=== PATIENT | female | born 1965 | race Native Hawaiian/Other Pacific Islander ===

== ENCOUNTER 2017-01-06 08:39 | Observation (INO) | payer BC ==
[~2017-01-06] VITALS: Ht 157.5 cm; Wt 77.0 kg
[~2017-01-06 08:39] MED LIST: FERRATE325 MG PO; FOLIC ACID 11 MG/TA1 PO; IBU800 M1 PO; IMDUR 30MG30 MG/TAB PO; ISORDIL TITRADO30 MG PO; LASIX 40MG TABL40 MG PO; NATURAL C500 MG PO; NEPHROCAP PO; NORCO 325 MG-51 TAB PO; PLAVIX 75MG TAB75 MG PO; PRAVACHOL 20MG20 MG PO; PREDNISONE 5MG5 MG PO; SODIUM BICARBO650 MG PO; TYLENOL EXTRA500 M1 PO; VASOTEC 10M10 MG/TAB PO; VITAMIN C500 MG PO; ZYLOPRIM 300MG300 MG PO; [UNRECOGNIZED DRUG - OTHER]
[2017-01-06] MEDS ORDERED: SODIUM BICARBO650 MG PO (09:06)
[2017-01-06] MEDS ORDERED: VASOTEC 10M10 MG/TAB PO (09:08)
[2017-01-06] MEDS ORDERED: PLAVIX 75MG TAB75 MG PO (09:08)
[2017-01-06 09:15] LABS: MEAN CELL VOLUME 101 fl (80.0-100.0); MEAN CORPUSCULAR HGB CONC 34 g/dl (33.0-37.0); MEAN PLATELET VOLUME 10.1 fl (7.4-10.4); PLATELET COUNT 172 K/mm3 (130-400); RED BLOOD COUNT 3.33 M/mm3 (4.10-5.30); REDCELL DISTRIBUTION WIDTH-CV 12.5 % (11.5-14.5); WHITE BLOOD COUNT 13.5 K/mm3 (4.8-10.8)
[2017-01-06 09:16] LABS: ADD PATHOLOGY DIFF REVIEW NO; HEMATOCRIT 33.5 % (37.0-47.0); HEMOGLOBIN 11.4 g/dl (12.5-16.0); MEAN CORPUSCULAR HEMOGLOBIN 34 pg (27.0-31.0)
[2017-01-06 09:24] LABS: ADJUSTED CALCIUM 9.2 mg/dL (8.4-10.2); ALANINE AMINOTRANSFERASE 43 U/L (9-52); ALBUMIN 3.9 gm/dL (3.5-5.0); ALKALINE PHOSPHATASE 116 U/L (50-136); ANION GAP 12 mmol/L (7-16); BILIRUBIN,TOTAL 0.8 mg/dL (0.0-1.0); BLOOD UREA NITROGEN 20 mg/dL (7-17); CALCIUM 9.1 mg/dL (8.4-10.2); CARBON DIOXIDE 33 mmol/L (22-30); CHLORIDE 94 mmol/L (98-107); GLUCOSE 91 mg/dL (74-106); LIPASE 330 U/L (23-300); SODIUM 138 mmol/L (137-145); TOTAL PROTEIN 7.5 gm/dL (6.4-8.2)
[2017-01-06 09:36] LABS: B-TYPE NATRIURETIC PEPTIDE 1650 pg/mL (0-125)
[2017-01-06 09:38] LABS: CREATININE, serum 3.95 mg/dL (0.52-1.25); POTASSIUM 2.9 mmol/L (3.4-5.0); TROPONIN-I < 0.012 ng/mL (0.000-0.034)
[2017-01-06 10:00] LABS: BAND 13 % (0-10); BASOPHIL 1 % (0-2); EOSINOPHIL 6 % (0-4); METAMYELOCYTE 1 % (0-0); NEUTROPHILS 60 % (42.0-75.2); PLATELET ESTIMATE NORMAL (NORMAL); TOTAL CELLS COUNTED 100
[2017-01-06 11:35] VITALS: BP 120/68; PULSE 69; TEMP 97.9
[2017-01-06 11:37] VITALS: BP 120/68; PULSE 18; TEMP 97.9
[2017-01-06 15:10] VITALS: BP 115/67; PULSE 70; TEMP 98.1
[2017-01-06 19:13] VITALS: BP 118/72; PULSE 73; TEMP 98.5
[2017-01-06 23:44] VITALS: BP 102/50; PULSE 72; TEMP 98.1
[2017-01-07 04:19] VITALS: BP 103/48; PULSE 65; TEMP 98
[2017-01-07 07:40] LABS: MEAN CELL VOLUME 104 fl (80.0-100.0); MEAN CORPUSCULAR HGB CONC 33 g/dl (33.0-37.0); MEAN PLATELET VOLUME 10.7 fl (7.4-10.4); PLATELET COUNT 202 K/mm3 (130-400); RED BLOOD COUNT 3.36 M/mm3 (4.10-5.30); REDCELL DISTRIBUTION WIDTH-CV 12.5 % (11.5-14.5); WHITE BLOOD COUNT 10.2 K/mm3 (4.8-10.8)
[2017-01-07 07:41] VITALS: BP 117/68; BP 17/68; PULSE 70; TEMP 98
[2017-01-07 07:41] LABS: HEMATOCRIT 34.8 % (37.0-47.0); HEMOGLOBIN 11.6 g/dl (12.5-16.0); MEAN CORPUSCULAR HEMOGLOBIN 35 pg (27.0-31.0)
[2017-01-07 07:42] LABS: ADD PATHOLOGY DIFF REVIEW NO
[2017-01-07 08:00] LABS: ANION GAP 13 mmol/L (7-16); BLOOD UREA NITROGEN 30 mg/dL (7-17); CALCIUM 9.3 mg/dL (8.4-10.2); CARBON DIOXIDE 28 mmol/L (22-30); CHLORIDE 100 mmol/L (98-107); GLUCOSE 74 mg/dL (74-106); POTASSIUM 4.2 mmol/L (3.4-5.0); SODIUM 140 mmol/L (137-145)
[2017-01-07 08:09] LABS: TROPONIN-I < 0.012 ng/mL (0.000-0.034)
[2017-01-07 09:24] LABS: BAND 5 % (0-10); EOSINOPHIL 3 % (0-4); NEUTROPHILS 62 % (42.0-75.2); TOTAL CELLS COUNTED 100
[2017-01-07 09:25] LABS: PLATELET ESTIMATE NORMAL (NORMAL)
[2017-01-07 11:11] VITALS: BP 114/68; PULSE 70; TEMP 98.6
[2017-01-07] MEDS ORDERED: ZYLOPRIM 100MG100 MG PO (11:26)
[2017-01-07] MEDS ORDERED: VITAMINC500CH PO (11:26)
[2017-01-07] MEDS ORDERED: AMBIEN 5MG TABLE5 MG PO (11:27)
[2017-01-07] MEDS ORDERED: ANTACID500 M1 PO (11:27)
[2017-01-07] MEDS ORDERED: ASPIRIN 81M81 MG/TA2 PO (11:27)
== END 2017-01-07 16:10 | disposition home or self-care (01) ==
LOC: COL.ER 08:39 → MEDICAL 10:01
PROVIDERS: Emergency Medicine; Internal Medicine
DX: R07.9 Chest pain, unspecified (principal); M10.9 Gout, unspecified; I13.2 Hypertensive heart and chronic kidney disease with heart failure and with stage 5 chronic kidney disease, or end stage renal disease; N18.6 End stage renal disease; I25.10 Atherosclerotic heart disease of native coronary artery without angina pectoris; M32.14 Glomerular disease in systemic lupus erythematosus; D63.1 Anemia in chronic kidney disease; E78.5 Hyperlipidemia, unspecified; Z95.1 Presence of aortocoronary bypass graft; Z95.5 Presence of coronary angioplasty implant and graft; Z99.2 Dependence on renal dialysis; Z90.49 Acquired absence of other specified parts of digestive tract; Z87.891 Personal history of nicotine dependence; E66.9 Obesity, unspecified
CPT/HCPCS: G0378; J7512

== ENCOUNTER → 2017-04-21 | Outpatient (CLI) | payer BC ==
[~2017-04-21] MED LIST changes: +AMBIEN 5MG TABLE5 MG PO; +ANTACID500 M1 PO; +ASPIRIN 81M81 MG/TA2 PO; +VITAMINC500CH PO; +ZYLOPRIM 100MG100 MG PO
== END ==
LOC: MC.RAD 10:49
DX: Z12.31 Encounter for screening mammogram for malignant neoplasm of breast (principal)

== ENCOUNTER 2017-10-04 06:25 | Emergency (ER) | payer BC ==
[~2017-10-04] VITALS: Ht 157.5 cm; Wt 75.5 kg
[2017-10-04 07:24] LABS: BASO % 0.3 % (0.0-2.0); EOS # 0.2 (0.0-0.7); EOS % 1.2 % (0-4.0); GRAN # 10.1 (1.4-6.5); GRAN % 79.3 % (42.2-75.2); HEMOGLOBIN 12.2 g/dl (12.5-16.0); LYMPH % 15.3 % (20.0-51.0); MEAN CELL VOLUME 102 fl (80.0-100.0); MEAN CORPUSCULAR HEMOGLOBIN 34 pg (27.0-31.0); MEAN CORPUSCULAR HGB CONC 34 g/dl (33.0-37.0); MONO # 0.4 (0.1-0.6); MONO % 3.4 % (1.7-9.3); PLATELET COUNT 165 K/mm3 (130-400); RED BLOOD COUNT 3.58 M/mm3 (4.10-5.30); REDCELL DISTRIBUTION WIDTH-CV 13.3 % (11.5-14.5)
[2017-10-04 07:28] LABS: HEMATOCRIT 36.4 % (37.0-47.0)
[2017-10-04] MEDS ORDERED: RENVELA800 MG PO (07:39)
[2017-10-04 07:40] LABS: ALANINE AMINOTRANSFERASE 65 U/L (9-52); ALBUMIN 3.6 gm/dL (3.5-5.0); ALKALINE PHOSPHATASE 226 U/L (50-136); ANION GAP 17 mmol/L (7-16); AST,SGOT 35 U/L (15-37); BILIRUBIN,TOTAL 0.7 mg/dL (0.0-1.0); BLOOD UREA NITROGEN 62 mg/dL (7-17); CALCIUM 9.3 mg/dL (8.4-10.2); CARBON DIOXIDE 17 mmol/L (22-30); CHLORIDE 103 mmol/L (98-107); GLUCOSE 102 mg/dL (74-106); LIPASE 577 U/L (23-300); POTASSIUM 3.8 mmol/L (3.4-5.0); SODIUM 137 mmol/L (137-145); TOTAL PROTEIN 7.4 gm/dL (6.4-8.2)
[2017-10-04 07:43] LABS: CREATININE, serum 8.52 mg/dL (0.52-1.25)
[2017-10-04 07:49] LABS: TROPONIN-I < 0.012 ng/mL (0.000-0.034)
[2017-10-04 08:33] LABS: COLLECTION METHOD CLEAN CATCH
[2017-10-04 08:46] LABS: PH 6 (5-8); URINE APPEARANCE Cloudy; URINE BACTERIA Rare /hpf; URINE BILIRUBIN Negative (NEGATIVE); URINE BLOOD 3+ (NEGATIVE); URINE COLOR Yellow; URINE GLUCOSE 1+ (NEGATIVE); URINE KETONE Negative (NEGATIVE); URINE LEUKOCYTE ESTERASE 3+ (NEGATIVE); URINE NITRATE Positive (NEGATIVE); URINE PROTEIN(semi-quant) 2+ (NEGATIVE); URINE RBC 20-50 /hpf; URINE UROBILINOGEN Negative (NEGATIVE)
[2017-10-04] MEDS ORDERED: VANTIN 200200 MG/TAB PO ×2 (09:21→13:59)
[2017-10-04 10:02] VITALS: BP 158/89; PULSE 78; TEMP 97.8
== END 2017-10-04 10:00 | disposition home or self-care (01) ==
LOC: COL.ER 06:25
PROVIDERS: Emergency Medicine
DX: N39.0 Urinary tract infection, site not specified (principal); R05 Cough; M10.9 Gout, unspecified; N18.6 End stage renal disease; I25.10 Atherosclerotic heart disease of native coronary artery without angina pectoris; Z99.2 Dependence on renal dialysis; Z95.5 Presence of coronary angioplasty implant and graft; Z79.82 Long term (current) use of aspirin
CPT/HCPCS: J0696; J7050

== ENCOUNTER 2018-05-19 11:24 | Inpatient (IN) | payer BC ==
[~2018-05-19] VITALS: Ht 157.5 cm; Wt 78.6 kg
[2018-05-19] VITALS (16 sets, daily range): BP systolic 102–135; BP diastolic 36–68; PULSE 70–80; TEMP 98.2–98.9
[~2018-05-19 11:24] MED LIST changes: +RENVELA800 MG PO; +VANTIN 200200 MG/TAB PO
[2018-05-19 13:16] LABS: BASO # 0.1 (0.0-0.2); BASO % 0.6 % (0.0-2.0); EOS # 0.4 (0.0-0.7); EOS % 3.1 % (0-4.0); GRAN # 8.5 (1.4-6.5); LYMPH # 3.4 (1.2-3.4); LYMPH % 26.3 % (20.0-51.0); MEAN CELL VOLUME 102 fl (80.0-100.0); MEAN CORPUSCULAR HGB CONC 33 g/dl (33.0-37.0); MEAN PLATELET VOLUME 10.3 fl (7.4-10.4); MONO # 0.3 (0.1-0.6); MONO % 2.5 % (1.7-9.3); PLATELET COUNT 183 K/mm3 (130-400); RED BLOOD COUNT 2.23 M/mm3 (4.10-5.30)
[2018-05-19 13:19] LABS: HEMATOCRIT 22.7 % (37.0-47.0); HEMOGLOBIN 7.4 g/dl (12.5-16.0); MEAN CORPUSCULAR HEMOGLOBIN 33 pg (27.0-31.0)
[2018-05-19 13:22] LABS: INR 0.9 (0.8-3.0); PROTHROMBIN TIME 10.4 SECONDS (9.7-12.8)
[2018-05-19 13:25] LABS: PARTIAL THROMBOPLASTIN TIME 33.3 SECONDS (26.0-37.0)
[2018-05-19 13:30] LABS: ALANINE AMINOTRANSFERASE 22 U/L (9-52); ALBUMIN 3.6 gm/dL (3.5-5.0); ALKALINE PHOSPHATASE 106 U/L (50-136); ANION GAP 5 mmol/L (7-16); AST,SGOT 22 U/L (15-37); BILIRUBIN,TOTAL 0.4 mg/dL (0.0-1.0); BLOOD UREA NITROGEN 31 mg/dL (7-17); CALCIUM 8.5 mg/dL (8.4-10.2); CARBON DIOXIDE 34 mmol/L (22-30); CHLORIDE 104 mmol/L (98-107); GLUCOSE 91 mg/dL (74-106); LIPASE 359 U/L (23-300); POTASSIUM 3.2 mmol/L (3.4-5.0); SODIUM 143 mmol/L (137-145); TOTAL PROTEIN 6.8 gm/dL (6.4-8.2)
[2018-05-19 13:39] LABS: CREATININE, serum 4.56 mg/dL (0.52-1.25)
[2018-05-19 13:42] LABS: TROPONIN-I < 0.012 ng/mL (0.000-0.034)
[2018-05-19 18:32] LABS: HEMATOCRIT 22.6 % (37.0-47.0); HEMOGLOBIN 7.4 g/dl (12.5-16.0)
[2018-05-20] VITALS (26 sets, daily range): BP systolic 113–146; BP diastolic 39–88; PULSE 50–77; TEMP 98.1–99.7
[2018-05-20 06:17] LABS: BASO # 0.1 (0.0-0.2); BASO % 0.5 % (0.0-2.0); EOS # 0.4 (0.0-0.7); EOS % 4.1 % (0-4.0); GRAN # 7.2 (1.4-6.5); LYMPH # 2.7 (1.2-3.4); LYMPH % 25.3 % (20.0-51.0); MEAN CELL VOLUME 100 fl (80.0-100.0); MEAN CORPUSCULAR HGB CONC 33 g/dl (33.0-37.0); MEAN PLATELET VOLUME 10.7 fl (7.4-10.4); MONO # 0.3 (0.1-0.6); MONO % 2.6 % (1.7-9.3); PLATELET COUNT 165 K/mm3 (130-400); RED BLOOD COUNT 2.92 M/mm3 (4.10-5.30); REDCELL DISTRIBUTION WIDTH-CV 15.2 % (11.5-14.5)
[2018-05-20 06:23] LABS: HEMATOCRIT 29.1 % (37.0-47.0); HEMOGLOBIN 9.5 g/dl (12.5-16.0); MEAN CORPUSCULAR HEMOGLOBIN 33 pg (27.0-31.0)
[2018-05-20 06:29] LABS: ALANINE AMINOTRANSFERASE 34 U/L (9-52); ALBUMIN 3.2 gm/dL (3.5-5.0); ALKALINE PHOSPHATASE 105 U/L (50-136); ANION GAP 8 mmol/L (7-16); AST,SGOT 22 U/L (15-37); BILIRUBIN,TOTAL 0.6 mg/dL (0.0-1.0); BLOOD UREA NITROGEN 39 mg/dL (7-17); CALCIUM 8.5 mg/dL (8.4-10.2); CARBON DIOXIDE 28 mmol/L (22-30); CHLORIDE 109 mmol/L (98-107); GLUCOSE 76 mg/dL (74-106); POTASSIUM 4.3 mmol/L (3.4-5.0); SODIUM 144 mmol/L (137-145); TOTAL PROTEIN 6.2 gm/dL (6.4-8.2)
[2018-05-20 06:42] LABS: CREATININE, serum 6.18 mg/dL (0.52-1.25); TROPONIN-I < 0.012 ng/mL (0.000-0.034)
[2018-05-21] VITALS (8 sets, daily range): BP systolic 108–145; BP diastolic 51–77; PULSE 62–77; TEMP 98–98.9
[2018-05-21 14:35] LABS: BASO % 0.3 % (0.0-2.0); EOS # 0.5 (0.0-0.7); EOS % 5.1 % (0-4.0); GRAN # 7.4 (1.4-6.5); GRAN % 72.6 % (42.2-75.2); HEMOGLOBIN 10.2 g/dl (12.5-16.0); LYMPH % 19.6 % (20.0-51.0); MEAN CELL VOLUME 97 fl (80.0-100.0); MEAN CORPUSCULAR HEMOGLOBIN 32 pg (27.0-31.0); MEAN CORPUSCULAR HGB CONC 33 g/dl (33.0-37.0); MEAN PLATELET VOLUME 10.4 fl (7.4-10.4); MONO # 0.2 (0.1-0.6); PLATELET COUNT 157 K/mm3 (130-400); RED BLOOD COUNT 3.17 M/mm3 (4.10-5.30)
[2018-05-21 14:39] LABS: HEMATOCRIT 30.7 % (37.0-47.0)
[2018-05-21 14:42] LABS: ALBUMIN 3.6 gm/dL (3.5-5.0); CALCIUM 8.9 mg/dL (8.4-10.2); CREATININE, serum 3.23 mg/dL (0.52-1.25); PHOSPHOROUS 2.6 mg/dL (2.5-4.5); POTASSIUM 3.5 mmol/L (3.4-5.0)
== END 2018-05-21 17:20 | disposition home or self-care (01) | DRG 377 ==
LOC: COL.ER 11:24 → SURG 13:56
PROVIDERS: Emergency Medicine; Internal Medicine Cardiovascular Disease; Internal Medicine Gastroenterology; Internal Medicine Nephrology
PROC: 0DB98ZX Excision of Duodenum, Via Natural or Artificial Opening Endoscopic, Diagnostic (ICD-10-PCS; principal; 2018-05-20 12:00)
PROC: 0DBL8ZX Excision of Transverse Colon, Via Natural or Artificial Opening Endoscopic, Diagnostic (ICD-10-PCS; 2018-05-21)
PROC: 5A1D70Z Performance of Urinary Filtration, Intermittent, Less than 6 Hours Per Day (ICD-10-PCS; 2018-05-21)
DX: K92.1 Melena (principal); N18.6 End stage renal disease; I12.0 Hypertensive chronic kidney disease with stage 5 chronic kidney disease or end stage renal disease; N25.81 Secondary hyperparathyroidism of renal origin; D62 Acute posthemorrhagic anemia; D12.3 Benign neoplasm of transverse colon; D13.2 Benign neoplasm of duodenum; I95.3 Hypotension of hemodialysis; E11.22 Type 2 diabetes mellitus with diabetic chronic kidney disease; Z99.2 Dependence on renal dialysis; I25.10 Atherosclerotic heart disease of native coronary artery without angina pectoris; L93.0 Discoid lupus erythematosus; Z95.1 Presence of aortocoronary bypass graft; D63.1 Anemia in chronic kidney disease; E78.5 Hyperlipidemia, unspecified; Z87.891 Personal history of nicotine dependence; I25.119 Atherosclerotic heart disease of native coronary artery with unspecified angina pectoris; Z95.5 Presence of coronary angioplasty implant and graft
CPT/HCPCS: OP; C9113; J2405; J2704; J2765; J7030; J7512; P9016

== ENCOUNTER → 2018-05-30 | Outpatient (CLI) | payer BC | LOC: MC.RAD 12:23 | DX: N63.0 Unspecified lump in unspecified breast (principal); N64.4 Mastodynia | CPT/HCPCS: G0279 ==

== ENCOUNTER → 2018-09-15 | Outpatient (CLI) | payer BC, OTHER | LOC: MC.RAD 10:50 | DX: N61.1 Abscess of the breast and nipple (principal); N60.12 Diffuse cystic mastopathy of left breast; N60.01 Solitary cyst of right breast ==

== ENCOUNTER → 2020-11-05 | Outpatient (CLI) | payer BC | LOC: MC.RAD 11:13 | DX: Z12.31 Encounter for screening mammogram for malignant neoplasm of breast (principal); N64.9 Disorder of breast, unspecified ==

== ENCOUNTER → 2020-11-11 | Outpatient (CLI) | payer BC | LOC: MC.RAD 13:00 | DX: N60.02 Solitary cyst of left breast (principal) ==

== ENCOUNTER → 2021-07-03 | Outpatient (CLI) | payer BC | LOC: COL.RAD 14:25 | DX: Z11.1 Encounter for screening for respiratory tuberculosis (principal) ==

== ENCOUNTER 2021-07-23 14:33 | Emergency (ER) | payer BC | END 2021-07-23 15:44 | disposition left against medical advice (07) | LOC: COL.ER 14:33 | DX: R69 Illness, unspecified (principal) ==

== ENCOUNTER 2021-10-30 12:06 | Day surgery (SDC) | payer BC ==
[2021-10-30] VITALS (9 sets, daily range): BP systolic 108–133; BP diastolic 66–73; PULSE 57–67; TEMP 98.4
[~2021-10-30] VITALS: Ht 157.5 cm; Wt 71.4 kg
[2021-10-30] MEDS ORDERED: AURYXIA1 GM PO (14:04)
[2021-10-30] MEDS ORDERED: TYLENOL 500MG500 MG PO (14:04)
--- NOTE | 2021-10-30 14:04 | NUR ---
Moderate sedation assessment completed after assessing patient in express unit. See merge for all medication, assessment, vital sign, and intervention times.
[2021-10-30 14:11] LABS: HEMATOCRIT 38.6 % (37.0-47.0); MEAN CELL VOLUME 97 fl (80.0-100.0); MEAN CORPUSCULAR HEMOGLOBIN 33 pg (27-31); MEAN CORPUSCULAR HGB CONC 34 g/dl (33.0-37.0); PLATELET COUNT 161 K/mm3 (130-400); RED BLOOD COUNT 3.98 M/mm3 (4.10-5.30)
[2021-10-30 14:19] LABS: PROTHROMBIN TIME 11.4 SECONDS (9.7-12.8)
[2021-10-30 14:21] LABS: PARTIAL THROMBOPLASTIN TIME 30.8 SECONDS (26.0-37.0)
[2021-10-30 14:34] LABS: CALCIUM 8.2 mg/dL (8.4-10.2); CREATININE, serum 7.99 mg/dL (0.57-1.11); POTASSIUM 3.6 mmol/L (3.5-4.5)
--- NOTE | 2021-10-30 15:19 | NUR ---
Pt back to express from label remover after heart cath. Chris is with pt. Pt is relaxed, alert, pwd, with reg and unlabored respirations. nsr on monitor. pt is supine with hob 0-10deg. rt groin site soft, dressing clean and dry. cms intact distal. POC reviewed with pt and . lunch ordered.
--- NOTE | 2021-10-30 18:20 | NUR ---
Pt did well during her recovery. Right groin site remains soft with clean dry and intact dressing. Pt is up and ambulatory in nurses station, gait is steady. i reviewed dc/rx and fu instructions with pt and . I did call Dr. Ocasio to clarify medication plan. Pt instructed she should be taking brillinta 90 mg bid and asa 81 mg once daily. They were informed office would call them to set up follow up appointment. IV was dc'd with cath intact, dressing was applied. pt is escorted to exit via wheelchair.
== END 2021-10-30 19:05 | disposition home or self-care (01) ==
LOC: COL.CAR 12:06
PROVIDERS: Internal Medicine Interventional Cardiology
DX: I25.119 Atherosclerotic heart disease of native coronary artery with unspecified angina pectoris (principal); I12.0 Hypertensive chronic kidney disease with stage 5 chronic kidney disease or end stage renal disease; N18.6 End stage renal disease; Z99.2 Dependence on renal dialysis; Z95.1 Presence of aortocoronary bypass graft
CPT/HCPCS: C1760; C1769; C1887; C1894; J1644; J2250; J3010; Q9967

== ENCOUNTER 2021-11-25 11:32 | Inpatient (IN) | payer BC ==
[2021-11-25] VITALS (9 sets, daily range): BP systolic 113–151; BP diastolic 60–72; PULSE 63–94; TEMP 98–98.4
[~2021-11-25] VITALS: Ht 157.5 cm; Wt 78.1 kg
[~2021-11-25 11:32] MED LIST changes: +AURYXIA1 GM PO; +TYLENOL 500MG500 MG PO
--- NOTE | 2021-11-25 12:52 | NUR ---
Patient has fistula's placed on left upper arm and forarm. Restricted extremity band place on patient's left upper extremity.
[2021-11-25] MEDS ORDERED: BRILINTA90 MG PO (12:55)
--- NOTE | 2021-11-25 16:15 | NUR ---
returned to room per bed from PACU, awake and alert but drowsy, IV infusign per dial-a-flow at 20ml/hr, O2 on at 2L/NC and O2 sat 100%, O2 down to 1L, dressing to neck CD&I and ice pack in place, suture removal kit placed at bedside
--- NOTE | 2021-11-25 16:27 | NUR ---
Dr Flores notified of patient's admission and then [facility] notified per Dr Flores' order,
--- NOTE | 2021-11-25 16:30 | NUR ---
full assessment completed, see interventions for further info
[2021-11-25] MEDS ORDERED: ROCALTROL0.5 MCG PO (16:38)
[2021-11-25] MEDS ORDERED: RETACRIT2000 UNIT/ IV (16:38)
--- NOTE | 2021-11-25 16:45 | NUR ---
C/O pain to neck, medicated with hydrocodone 5mg 1 tab, takes sips of water and tolerates well
--- NOTE | 2021-11-25 17:00 | NUR ---
O2 is off and O2 sat is 98% on room air, is more awake now and talking with daughter
--- NOTE | 2021-11-25 18:00 | NUR ---
requesting to sit up, assisting to sitting up in bed with family at bedside, states relief from pain pill given earlier
--- NOTE | 2021-11-25 18:50 | NUR ---
bedside shift report given to SUZIE Arredondo
--- NOTE | 2021-11-25 21:26 | NUR ---
Pt has had two boughts of emesis after attempting to consume a heavy meal. Pt educated on what foods she should consume that would decrease emesis and nausea. Zofran was given after first episode of N/V. Pt still insists on eating heavy foods and had takeout brought up by family member, which resulted in emesis.
[2021-11-25 22:43] LABS: CALCIUM 7.6 mg/dL (8.4-10.2)
--- NOTE | 2021-11-25 22:52 | NUR ---
Dr. Flores as notified of pts 7.6 calcium level, down from 7.9. stated no action required this evening. Also that he does not need to be called in regards to 0500 11/26/21 labs because he will be rounding shortly after lab draws. Additional nursing order entered.
[2021-11-25 22:53] LABS: CREATININE, serum 9.5 mg/dL (0.57-1.11); POTASSIUM 5.5 mmol/L (3.5-4.5)
[2021-11-26] VITALS (9 sets, daily range): BP systolic 106–139; BP diastolic 54–76; PULSE 73–128; TEMP 98.3–99.2
--- NOTE | 2021-11-26 03:21 | NUR ---
Pt has not had anymore episodes of emesis. Pt has no complaints of pain and currently has and ice pack to her incision site. Spouse at the bedside, sleeping; approved for one visitor to spend the night per surgical physician assistant. All other needs met at this time, call light within reach.
[2021-11-26 03:43] LABS: BASO # 0.1 K/mm3 (0.0-0.2); BASO % 0.8 % (0.0-2.0); EOS # 0.1 K/mm3 (0.0-0.7); EOS % 0.9 % (0.0-4.0); GRAN % 79.2 % (42.2-75.2); HEMOGLOBIN 11.5 g/dl (12.5-16.0); LYMPH # 1.9 K/mm3 (1.2-3.4); LYMPH % 16.4 % (20.0-51.0); MEAN CELL VOLUME 99 fl (80.0-100.0); MEAN CORPUSCULAR HEMOGLOBIN 33 pg (27-31); MEAN CORPUSCULAR HGB CONC 33 g/dl (33.0-37.0); MEAN PLATELET VOLUME 9.9 fl (7.4-10.4); MONO # 0.3 K/mm3 (0.1-0.6); MONO % 2.3 % (1.7-9.3); PLATELET COUNT 169 K/mm3 (130-400); RED BLOOD COUNT 3.54 M/mm3 (4.10-5.30)
[2021-11-26 03:45] LABS: HEMATOCRIT 35.1 % (37.0-47.0)
[2021-11-26 03:57] LABS: ALBUMIN 3.3 gm/dL (3.5-5.0); BILIRUBIN,TOTAL 0.6 mg/dL (0.2-1.2); CALCIUM 7.1 mg/dL (8.4-10.2); CREATININE, serum 10.28 mg/dL (0.57-1.11); TOTAL PROTEIN 8.1 gm/dL (6.2-8.1)
[2021-11-26 03:59] LABS: POTASSIUM 7.4 mmol/L (3.5-4.5)
--- NOTE | 2021-11-26 07:08 | NUR ---
Critical K+ lab of 7.4 was called to this nurse. Dr. Flores did not want to be called with calcium lab values until 0500. However, labs were drawn at [address] Flores was notified of critical lab and decreasing calcium levels. New orders were received and initiated.
--- NOTE | 2021-11-26 07:30 | NUR ---
Pt nauseated, does not think that she can drink the kayexalate. Gave her some ice chips as she appears to be struggling with some phylgm. Informed her I would return shortly to see if she could tolerate the Kayexalate
--- NOTE | 2021-11-26 08:26 | NUR ---
Pt has now finished all 3 bottles of kayexalate and feels as if she will be able to keep it down. Discussed pt with Dr Flores. New orders given and discussed with pharmacy. Pts remains present in the room. Explained that I will be in often monitoring her as her potassium is elevated. Notified nutrition technician so that she can be more closely monitored. Discussing pt with emy now
--- NOTE | 2021-11-26 09:42 | NUR ---
Notified Dr Flores of pt heart rate, awaiting labs at this time
--- NOTE | 2021-11-26 09:55 | NUR ---
Labs were drawn from arm that had calcium gluconate infusing. Asked lab to come and redraw for accurate reading. Pt doing okay, resting in bed. Reports no pain, but is drowsy
[2021-11-26 10:46] LABS: BASO # 0.1 K/mm3 (0.0-0.2); BASO % 0.7 % (0.0-2.0); EOS # 0.1 K/mm3 (0.0-0.7); EOS % 0.9 % (0.0-4.0); GRAN % 76.9 % (42.2-75.2); HEMOGLOBIN 11.5 g/dl (12.5-16.0); LYMPH # 1.7 K/mm3 (1.2-3.4); LYMPH % 18.5 % (20.0-51.0); MEAN CELL VOLUME 97 fl (80.0-100.0); MEAN CORPUSCULAR HEMOGLOBIN 33 pg (27-31); MEAN CORPUSCULAR HGB CONC 34 g/dl (33.0-37.0); MEAN PLATELET VOLUME 10.1 fl (7.4-10.4); MONO # 0.3 K/mm3 (0.1-0.6); MONO % 2.7 % (1.7-9.3); PLATELET COUNT 170 K/mm3 (130-400); RED BLOOD COUNT 3.47 M/mm3 (4.10-5.30); REDCELL DISTRIBUTION WIDTH-CV 12.2 % (11.5-14.5)
[2021-11-26 10:47] LABS: HEMATOCRIT 33.6 % (37.0-47.0)
--- NOTE | 2021-11-26 10:50 | NUR ---
IV to right wrist has infiltrated. Not able to get new line in, [facility] notified. They are in placing PICC line in another room and would be in when they can. Pt doing okay, more awake now. She is currently sitting up in the chair. Assisted her back to the bed. She is steady on her feet, no increase in pain.
--- NOTE | 2021-11-26 10:51 | NUR ---
Marlene: [employer] Situation: Courtroom Reporter stopped by on rounds Background: PT was very sleepy Assessment: PT was content and resting well Recommendation: Courtroom Reporter will follow up as needed
[2021-11-26 11:08] LABS: ALBUMIN 3.2 gm/dL (3.5-5.0); BILIRUBIN,TOTAL 1.3 mg/dL (0.2-1.2); CREATININE, serum 10.46 mg/dL (0.57-1.11); POTASSIUM 4.1 mmol/L (3.5-4.5); TOTAL PROTEIN 7.7 gm/dL (6.2-8.1)
--- NOTE | 2021-11-26 11:12 | NUR ---
tank worker met with patient to complete intake and discuss discharge plan. Patient lives in [place]. She is independent with her ADL's and does not utilize any DME to assist with mobility. Patient has no home oxygen needs. Patient does not have a PCP. She states that she has been seeing for "7 years and he manages my care needs". Patient utilizes [facility] in for medication needs. Patient does not have a DPOA-HC established. She is not legally . Her legal next of kin established is her daughter Jacey ([phone]). Patient is planning on returning home once medically ready. Discharge plan: Home
[2021-11-27 00:09] VITALS: BP 107/56; PULSE 93; TEMP 99
[2021-11-27 04:05] VITALS: BP 92/45; PULSE 92; TEMP 98.4
--- NOTE | 2021-11-27 06:07 | NUR ---
Pt had a better night this shift. Pt had dialysis on 11/26 and was able to ambulate back to her room with a steady gait. Pt tolerating PO intake well, no complaints of N/v. at the bedside. All other needs met at this time, call light within reach.
[2021-11-27 06:15] LABS: BASO # 0.1 K/mm3 (0.0-0.2); BASO % 0.5 % (0.0-2.0); EOS # 0.2 K/mm3 (0.0-0.7); GRAN # 6.6 K/mm3 (1.4-6.5); GRAN % 71.1 % (42.2-75.2); LYMPH % 21.7 % (20.0-51.0); MEAN CELL VOLUME 98 fl (80.0-100.0); MEAN CORPUSCULAR HGB CONC 34 g/dl (33.0-37.0); MEAN PLATELET VOLUME 10.3 fl (7.4-10.4); MONO # 0.4 K/mm3 (0.1-0.6); MONO % 4.4 % (1.7-9.3); PLATELET COUNT 151 K/mm3 (130-400); REDCELL DISTRIBUTION WIDTH-CV 12.1 % (11.5-14.5)
[2021-11-27 06:19] LABS: HEMATOCRIT 28.4 % (37.0-47.0); HEMOGLOBIN 9.5 g/dl (12.5-16.0); MEAN CORPUSCULAR HEMOGLOBIN 33 pg (27-31)
--- NOTE | 2021-11-27 06:21 | NUR ---
Lab called this nurse in regards to pts Hgb. Fell from 11.5 to 9.5. Pt had dialysis 11/26
[2021-11-27 06:52] LABS: ALBUMIN 2.9 gm/dL (3.5-5.0); BILIRUBIN,TOTAL 1.1 mg/dL (0.2-1.2); CALCIUM 7.7 mg/dL (8.4-10.2); CREATININE, serum 8.54 mg/dL (0.57-1.11); POTASSIUM 3.3 mmol/L (3.5-4.5); TOTAL PROTEIN 6.8 gm/dL (6.2-8.1)
[2021-11-27 08:00] VITALS: BP 96/42; PULSE 104; TEMP 98.7
[2021-11-27] MEDS ORDERED: ANTACID ULTRA1000 M1 PO (09:43)
--- NOTE | 2021-11-27 10:13 | NUR ---
Reviewed discharge instructions with pt and her . Reviewed activity, prescriptions and follow up appointments. They verbalized understanding. Pt will stay for lunch and then discharge. All questions answered
--- NOTE | 2021-11-27 10:27 | NUR ---
Initial visit; Patient thanked Conceptor for looking in on her and offering God's blessings and keeping her in her prayers. Conceptor will Follow-up by request.
[2021-11-27 11:22] VITALS: BP 110/59; PULSE 88; TEMP 98.6
== END 2021-11-27 12:26 | disposition home or self-care (01) | DRG 674 ==
LOC: SDCO 11:32 → SURG 16:15 → SDCO 16:30 → SURG 16:31
PROVIDERS: Nurse Anesthetist, Certified Registered; Registered Nurse; Surgery; ADMIT Internal Medicine Nephrology
PROC: 0GBL0ZZ Excision of Right Superior Parathyroid Gland, Open Approach (ICD-10-PCS; 2021-11-25)
PROC: 0GBM0ZZ Excision of Left Superior Parathyroid Gland, Open Approach (ICD-10-PCS; 2021-11-25)
PROC: 0GBN0ZZ Excision of Right Inferior Parathyroid Gland, Open Approach (ICD-10-PCS; 2021-11-25)
PROC: 0GBP0ZZ Excision of Left Inferior Parathyroid Gland, Open Approach (ICD-10-PCS; principal; 2021-11-25 13:30)
PROC: 5A1D70Z Performance of Urinary Filtration, Intermittent, Less than 6 Hours Per Day (ICD-10-PCS; 2021-11-27)
DX: N25.81 Secondary hyperparathyroidism of renal origin (principal); I12.0 Hypertensive chronic kidney disease with stage 5 chronic kidney disease or end stage renal disease; N18.6 End stage renal disease; I25.10 Atherosclerotic heart disease of native coronary artery without angina pectoris; M35.00 Sjogren syndrome, unspecified; D63.1 Anemia in chronic kidney disease; E87.5 Hyperkalemia; I25.2 Old myocardial infarction; Z95.5 Presence of coronary angioplasty implant and graft; Z79.82 Long term (current) use of aspirin; Z87.891 Personal history of nicotine dependence; Z99.2 Dependence on renal dialysis
CPT/HCPCS: A4648; J0330; J0610; J0690; J1815; J2405; J2704; J2765; J3010; J7030; J7050; J7512

== ENCOUNTER 2021-12-01 18:10 | Emergency (ER) | payer BC ==
[~2021-12-01] VITALS: Ht 157.5 cm; Wt 71.0 kg
[~2021-12-01 18:10] MED LIST changes: +ANTACID ULTRA1000 M1 PO; +BRILINTA90 MG PO; +RETACRIT2000 UNIT/ IV; +ROCALTROL0.5 MCG PO
[2021-12-01 18:22] VITALS: TEMP 98.5
[2021-12-01 19:33] LABS: BASO % 0.5 % (0.0-2.0); EOS % 0.7 % (0.0-4.0); GRAN # 4.5 K/mm3 (1.4-6.5); GRAN % 81.1 % (42.2-75.2); LYMPH # 0.8 K/mm3 (1.2-3.4); LYMPH % 15.1 % (20.0-51.0); MEAN CELL VOLUME 94 fl (80.0-100.0); MEAN CORPUSCULAR HGB CONC 34 g/dl (33.0-37.0); MEAN PLATELET VOLUME 9.6 fl (7.4-10.4); MONO # 0.1 K/mm3 (0.1-0.6); MONO % 2.2 % (1.7-9.3); PLATELET COUNT 204 K/mm3 (130-400); RED BLOOD COUNT 2.98 M/mm3 (4.10-5.30); REDCELL DISTRIBUTION WIDTH-CV 11.7 % (11.5-14.5)
[2021-12-01 19:36] LABS: HEMOGLOBIN 9.6 g/dl (12.5-16.0); MEAN CORPUSCULAR HEMOGLOBIN 32 pg (27-31)
[2021-12-01 19:48] LABS: ALBUMIN 2.8 gm/dL (3.5-5.0); CALCIUM 8.8 mg/dL (8.4-10.2); CREATININE, serum 4.33 mg/dL (0.57-1.11); POTASSIUM 3.8 mmol/L (3.5-4.5); TOTAL PROTEIN 7.5 gm/dL (6.2-8.1)
[2021-12-01] MEDS ORDERED: ATIVAN 1MG T1 MG/TAB PO (20:28)
[2021-12-01 20:36] VITALS: BP 158/98; PULSE 97
== END 2021-12-01 21:00 | disposition home or self-care (01) ==
LOC: COL.ER 18:10
PROVIDERS: Personal Emergency Response Attendant
DX: R25.1 Tremor, unspecified (principal); Z28.310 Unvaccinated for COVID-19

== ENCOUNTER 2022-03-17 10:23 | Outpatient (CLI) | payer BC ==
[2022-03-17] VITALS (9 sets, daily range): BP systolic 105–151; BP diastolic 64–85; PULSE 58–67; TEMP 98
[~2022-03-17] VITALS: Ht 157.5 cm; Wt 72.1 kg
[~2022-03-17 10:23] MED LIST changes: +ATIVAN 1MG T1 MG/TAB PO
[2022-03-17] MEDS ORDERED: RETACRIT4000 UNIT/ IV (10:47)
[2022-03-17] MEDS ORDERED: BRILINTA90 MG PO (10:49)
--- NOTE | 2022-03-17 11:35 | NUR ---
SEE MERGE FOR VITAL SIGNS, ASSESSMENTS, MEDICATIONS, AND INTERVENTIONS.
== END 2022-03-17 14:20 | disposition home or self-care (01) ==
LOC: COL.CAR 10:23
DX: T82.898A Other specified complication of vascular prosthetic devices, implants and grafts, initial encounter (principal); Z87.891 Personal history of nicotine dependence
CPT/HCPCS: C1769; J2250; J3010; Q9967